=== PATIENT | female | born 1935 | race Caucasian/White ===

== ENCOUNTER 2020-01-29 10:30 | Outpatient (CLI) | payer MEDICARE, SELFPAY ==
--- NOTE | ~2020-01-29 | CT_ITS ---
EXAMINATION: CT abdomen pelvis wo con DATE: 01/29/2020 11:06 INDICATION: Abnormal weight loss. Possible palpable mass. TECHNIQUE: Computed tomography (CT) of the abdomen and pelvis was performed without intravenous contr ast. Automated exposure control and iterative reconstruction technique were employed. Exam dose: 276 .50 mGy-cm total exam DLP. COMPARISON: None. FINDINGS: There is mild discoid atelectasis or scarring at the posterior right lung base. Calcified hepatic and splenic granulomas. No hepatic, splenic, pancreatic or adrenal space occupying mass lesion. Bilateral fat containing foramen of Bochdalek hernias, containing fat on the right, fat and partial l eft kidney on the left. 3 cm left renal mass most consistent with cyst. No right renal mass lesion. No urinary tract calculus or hydroureteronephrosis. Small sliding hiatal hernia. There is a prominent amount of feces in the colon. Numerous diverticula of the colon; no CT evidence of diverticulitis. No bowel obstruction or intraperitoneal free air. Status post hysterectomy. There is diffuse moderate thickening of the urinary bladder. There is calcification of the abdominal aorta and iliac arteries; no abdominal aortic aneurysm. No intraperitoneal or retroperitoneal or pelvic mass lesion or adenopathy or ascites. Degenerative changes of the thoracic and lumbar spine, including severe degenerative disc disease at L4-5 and L5-S1 and degenerative changes of apophyseal joints, with associated grade 1 anterolisthesis at L4-5. IMPRESSION: 3 cm left renal probable cyst Small sliding hiatal hernia Colonic diverticulosis Reviewed, dictated and finalized at Location A. Reviewed, dictated and finalized at location A.
== END 2020-01-29 10:31 | disposition home or self-care (01) ==
PROVIDERS: PCP Family Medicine; Visit Provider Family Medicine
DX: R63.4 Abnormal weight loss (principal); R19.00 Intra-abdominal and pelvic swelling, mass and lump, unspecified site; K44.9 Diaphragmatic hernia without obstruction or gangrene; K57.90 Diverticulosis of intestine, part unspecified, without perforation or abscess without bleeding
CPT/HCPCS: 74176

== ENCOUNTER 2020-05-03 09:18 | Outpatient (CLI) | payer MEDICARE, SELFPAY ==
--- NOTE | ~2020-05-03 | CT_ITS ---
EXAMINATION: CTA chest DATE: 05/03/2020 10:15 INDICATION: Thoracic aortic aneurysm without rupture. TECHNIQUE: Computed tomographic angiography (CTA) of the chest was performed with 100 mL Omnipaque-35 0 intravenous contrast. Automated exposure control and iterative reconstruction technique were employ ed. The dose-length product was 171.73 mGy-cm. Maximum intensity projection 3D-reconstructions of the aorta and other arteries were constructed by the technologist on a separate workstation. COMPARISON: Chest CT 01/06/2019 FINDINGS: There is mild atelectasis bilaterally. No pleural effusion. Calcified left hilar lymph node s are consistent with old granulomatous disease. Cardiomegaly is noted. No pericardial effusion. Ther e is no pulmonary embolus. The aorta measures 4.1 cm at the sinuses of Valsalva, 3.2 cm at the sinotu bular junction, 3.2 cm in the mid ascending aorta, 3.1 cm at the isthmus, 4.1 cm in proximal descendi ng aorta, and 3.1 cm in the mid descending aorta. There is a 3.0 cm cyst in left kidney. Calcificatio ns in the spleen are consistent with old granulomatous disease. There is severe thoracic spondylosis . IMPRESSION: 1. Stable 4.1 cm fusiform aneurysm of proximal descending thoracic aorta. Reviewed, dictated and finalized at location B.
[2020-05-03 09:55] LABS: Estimated Glomerular Filt Rate > 60
== END 2020-05-03 09:19 | disposition home or self-care (01) ==
PROVIDERS: PCP Family Medicine; Visit Provider Family Medicine
DX: I71.2 Thoracic aortic aneurysm, without rupture (principal)
CPT/HCPCS: 36415; 71275; Q9967

== ENCOUNTER 2021-01-10 13:38 | Outpatient (CLI) | payer MEDICARE, SELFPAY ==
--- NOTE | ~2021-01-10 | US_ITS ---
EXAMINATION: US venous doppler [facility] DATE: 01/10/2021 14:22 INDICATION: Left lower limb swelling. Acute embolism. TECHNIQUE: Grayscale ultrasound images without and with compression and Doppler ultrasound images of the left lower extremity veins were obtained. COMPARISON: None. FINDINGS: The visualized portions of left common femoral vein, profunda (deep) femoral vein, femoral vein, popl iteal vein, peroneal veins, posterior tibial veins, gastrocnemius vein and greater saphenous vein out flow are patent. IMPRESSION: 1. No deep venous thrombosis in the left lower limb. Reviewed, dictated and finalized at location A.
== END 2021-01-10 13:39 | disposition home or self-care (01) ==
PROVIDERS: PCP Family Medicine; Visit Provider Physician Assistant
DX: I82.90 Acute embolism and thrombosis of unspecified vein (principal); M79.89 Other specified soft tissue disorders
CPT/HCPCS: 93971

== ENCOUNTER 2021-06-06 07:49 | Outpatient (CLI) | payer MEDICARE, SELFPAY ==
--- NOTE | ~2021-06-06 | CT_ITS ---
EXAMINATION: CTA chest EXAM DATE: 06/06/2021 08:31 INDICATION: 4.1 thoracic aortic aneurysm on last CTA. TECHNIQUE: Spiral CT of the chest following intravenous injection of 100 mL Omnipaque 350. Axial, co rufino and sagittal images of the chest were reviewed. Maximum intensity projection 3-D reconstruction s of the arteries were created by the technologist on dedicated workstation. Coronal maximum intens ity pixel images of chest reviewed. The dose-length product (DLP) for this examination was 168.64 mG y-cm. The exposure was tailored according to patient size (auto mA exposure control), and iterative reconstruction (ASIR) was used as additional dose reduction technique. Comparison is made to prior ex amination from 05/03/2020. FINDINGS: Mildly aneurysmal ascending thoracic aorta measuring up to 4.1 cm, unchanged. No dissectio n. No central pulmonary emboli. Mild emphysema. Lungs are clear. There are no pleural or pericardial effusions. Tracheobronchial tree is patent. There is no mediastinal, hilar or axillary lymphaden opathy. There is no pneumothorax. There is cardiomegaly. There is mild coronary arterial calcifi cation, arterial sclerosis. Upper abdomen is unremarkable. There is mild to moderate thoracic spon dylosis without osteoblastic or osteolytic lesions identified. IMPRESSION: 1. Stable descending thoracic aortic 4.1 cm aneurysm. 2. Mild emphysema. 3. Cardiomegaly. Reviewed, dictated and finalized at location B.
[2021-06-06 08:24] LABS: Estimated Glomerular Filt Rate > 60
== END 2021-06-06 07:50 | disposition home or self-care (01) ==
LOC: ANHIMG 07:49
PROVIDERS: PCP Family Medicine; Visit Provider Family Medicine
DX: I71.2 Thoracic aortic aneurysm, without rupture (principal); J43.9 Emphysema, unspecified; I51.7 Cardiomegaly
CPT/HCPCS: 71275; Q9967

== ENCOUNTER 2022-01-14 09:59 | Emergency (ER) | payer MEDICARE, SELFPAY ==
[2022-01-14] VITALS (10 sets, daily range): BP systolic 109–174; BP diastolic 71–96; PULSE 68–83; RESP 14–25; TEMP 37; O2SAT 95–98
--- NOTE | ~2022-01-14 | CT_ITS ---
EXAMINATION: CTA chest PE protocol DATE: 01/14/2022 14:45 INDICATION: Dizziness and shortness of breath TECHNIQUE: Computed tomography angiography (CTA) of the chest was performed with 100 mL Omnipaque-350 intravenous contrast timed to evaluate the pulmonary arteries. Coronal maximum intensity projection 3D-reconstructions were created by the technologist. The dose-length product (DLP) was 160.06 mGy-cm. Automated exposure control and iterative reconstruction technique were employed. COMPARISON: 06/06/2021 FINDINGS: The pulmonary arteries are well-opacified. No pulmonary embolism is identified. There is mi ld dependent atelectasis. The lungs are free of focal airspace opacities. There is no pleural effusio n or pneumothorax. No pathologically enlarged thoracic lymph nodes are identified. Cardiomegaly is no marianne. There is a 3.2 cm cyst of the left kidney. Severe thoracic spondylosis is noted. IMPRESSION: 1. No pulmonary embolism or acute cardiopulmonary abnormality. Reviewed, dictated and finalized at location F.
--- NOTE | ~2022-01-14 | CT_ITS ---
EXAMINATION: CT brain wo con DATE: 01/14/2022 11:26 INDICATION: Headache and dizziness TECHNIQUE: Computed tomography (CT) of the head was performed without intravenous contrast. Sagittal and coronal reconstructions were performed. The mA was adjusted according to patient size. Iterative reconstruction technique was employed. The dose-length product was 605.33 mGy-cm. COMPARISON: head CT dated 10/08/2015 FINDINGS: No acute intracranial hemorrhage, acute infarction or abnormal extra axial fluid collection. Ventricl es are normal and symmetric. No mass/mass effect. Changes of bilateral intraocular lens replacement. The orbits, paranasal sinuses and mastoid air cells are normal. Intracranial calcified cerebral ather osclerosis is noted. IMPRESSION: 1. No acute intracranial process. Reviewed, dictated and finalized at location A.
--- NOTE | ~2022-01-14 | XR_ITS ---
EXAMINATION: XR chest 2V DATE: 01/14/2022 11:31 INDICATION: Dizziness and shortness of breath. TECHNIQUE: PA and lateral views of the chest were obtained. COMPARISON: Chest radiograph dated chest CT dated 06/06/2021 FINDINGS: Mild streaky bibasilar atelectasis. No pulmonary edema, pleural effusion or pneumothorax. The cardiom ediastinal silhouette is normal. Atherosclerotic and ectatic thoracic aorta. Calcified left hilar lym ph nodes consistent with old granulomatous disease. Mild thoracic spondylosis. IMPRESSION: 1. Mild streaky bibasilar atelectasis. Reviewed, dictated and finalized at location A.
--- NOTE | 2022-01-14 10:56 | ECG_ITS ---
Measurements Intervals [place] Rate: 65 P: 69 SD: 136 QRS: -37 QRSD: 90 T: 96 QT: 366 QTc: 381 Interpretive Statements SINUS RHYTHM MARKED LEFT AXIS DEVIATION [QRS AXIS < -30] POOR R-WAVE PROGRESSION NONSPECIFIC ST & T-WAVE ABNORMALITY NO PREVIOUS ECG AVAILABLE FOR COMPARISON Electronically Signed On 01-15-2022 16:02:40 CDT by Christopher Tang M.D.
--- NOTE | 2022-01-14 10:58 | ED.DIZZY ---
HPI - Dizziness General Chief Complaint: Dizziness <Lia Ba PA-C - Last Filed: 01/14/22 17:25> Stated Complaint: I'm sick <PIETER Moncada Last Filed: 01/14/22 17:25> Time Seen by Provider: 01/14/22 10:09 <Lia Ba PA-C - Last Filed: 01/14/22 17:25> Source: patient <PIETER Moncada Last Filed: 01/14/22 17:25> Mode of arrival: ambulatory <PIETER Moncada Last Filed: 01/14/22 17:25> Limitations: no limitations <PIETER Moncada Last Filed: 01/14/22 17:25> History of Present Illness HPI Narrative: Patient is an 86-year-old female who presents the ED with report of dizziness. Patient reports she woke up yesterday morning with slight dizziness which persisted throughout the day yesterday. She woke up again this morning with dizziness, which prompted her to come to the ED. She describes dizziness as feeling lightheaded and off balance like she is drunk, although she has not been drinking. She denies any room spinning sensation. Patient also reports having a mild headache and occasional tinnitus. Has chronic SOB, but denies any acute worsening. No nausea, vomiting, fever, chills, chest pain, vision changes, otalgia, abdominal pain, urinary symptoms. <PIETER Moncada Last Filed: 01/14/22 17:25> Related Data Allergies/Adverse Reactions: Allergies Allergy/AdvReac Type Severity Reaction Status Date / Time No Known Allergies Allergy Mild Unverified 04/25/10 07:06 <PIETER Moncada Last Filed: 01/14/22 17:25> Review of Systems Review of Systems: CONSTITUTIONAL: Denies fever, chills. EYES: Denies visual changes. ENT: Reports occasional tinnitus. Denies rhinorrhea, congestion, or otalgia. CARDIOVASCULAR: Denies chest pain. RESPIRATORY: Reports chronic shortness of breath. Denies acute worsening of SOB, cough. GASTROINTESTINAL: Denies abdominal pain, nausea, vomiting, or diarrhea. GENITOURINARY: Denies dysuria or hematuria. MUSCULOSKELETAL: Denies back pain. NEUROLOGIC: Reports dizziness/lightheadedness, mild OSUNA. Denies numbness, tingling, or weakness. <Lia Ba PA-C - Last Filed: 01/14/22 17:25> All systems reviewed & are unremarkable except as noted in HPI and below <Lia Ba PA-C - Last Filed: 01/14/22 17:25> [facility] Past Medical History Medical History: Medical History (Updated 01/14/22 @ 16:01 by Lia Ba PA-C) COPD (chronic obstructive pulmonary disease) Depression Hyperlipidemia Hypertension Thoracic aortic aneurysm <Lia Ba PA-C - Last Filed: 01/14/22 17:25> Surgical History Surgical History: Surgical History (Updated 01/14/22 @ 11:02 by Lia Ba PA-C) History of hysterectomy <Lia Ba PA-C - Last Filed: 01/14/22 17:25> Social History Social History: Social History (Updated 01/14/22 @ 11:02 by Lia Ba PA-C) Smoking status: Never smoker <Lia Ba PA-C - Last Filed: 01/14/22 17:25> Exam Narrative: GENERAL: Well appearing, well-nourished, non-toxic, in no acute distress. HEAD: Normocephalic, atraumatic. EYES: PERRL/EOMI, conjunctivae clear bilaterally. No nystagmus. EARS:TMS clear, with good light reflex. No erythema or bulging. Slight cerumen present, R > L, but no impaction. No pain with palpation of tragus or manipulation of pinnas. NECK: Supple. No adenopathy, no masses. RESPIRATORY: Airway patent, respirations nonlabored. Clear to auscultation bilaterally, no rales, rhonchi, wheezing. CARDIOVASCULAR: Regular rate and rhythm without murmurs, rubs, or gallops. Peripheral pulses 2+ and equal bilaterally. ABDOMINAL: Soft, nontender, nondistended, no hepatosplenomegaly. Normoactive BS. MUSCULOSKELETAL: Moves all extremities. Strength/ROM intact without gross deformities or TTP. No edema. SKIN: Warm, dry, normal color. No rashes. NEURO: A&O X3. Speech clear. Follows commands. CN II-XII intact. Sensation grossly intact. Steady gait. No atax
[2022-01-14] MEDS: MECLIZINE HCL 25 MG TABLET PO (11:09)
[2022-01-14 11:12] LABS: Basophils Absolute Auto 0.1 K/mm3 (0.0-0.1); Basophils Percent Auto 1.7 % (0.2-1.2); Eosinophils Absolute Auto 0.1 K/mm3 (0-0.3); Eosinophils Percent Auto 1.7 % (0-4.4); Hematocrit 39.3 % (37.0-47.0); Hemoglobin 12.6 g/dL (12.0-15.0); Immature Granulocyte Absolute 0.01 K/mm3 (0.00-0.031); Immature Granulocyte Percent A 0.2 % (0-0.5); Lymphocytes Percent Auto 21.3 % (18.3-44.2); Mean Corpuscular HGB Conc 32.1 g/dl (32-36); Mean Corpuscular Hemoglobin 30.5 pg (26-34); Mean Corpuscular Volume 95.2 fl (80-100); Mean Platelet Volume 9.2 fl (7.4-10.4); Monocytes Absolute Auto 0.4 K/mm3 (0.1-0.6); Monocytes Percent Auto 9.7 % (2.6-8.5); Neutrophils Absolute Auto 2.8 K/mm3 (1.3-6.7); Neutrophils Percent Auto 65.4 % (45.5-73.1); Platelet Count Result 327 k/mm3 (150-375); Red Blood Count 4.13 M/mm3 (4.2-5.4); White Blood Count 4.2 K/mm3 (4.5-10.0)
[2022-01-14 11:22] LABS: Alanine Aminotransferase 18 U/L (4-35); Albumin Level 4.3 g/dL (3.5-5.1); Alkaline Phosphatase 69 U/L (38-126); Anion Gap 5 mmol/L (8-16); Aspartate Amino Transferase 35 U/L (14-36); Bilirubin,Total 0.3 mg/dL (0.2-1.3); Blood Urea Nitrogen 12 mg/dL (7-17); Calcium 8.7 mg/dL (8.4-10.2); Carbon Dioxide 28 mmol/L (22-30); Chloride 105 mmol/L (98-107); Estimated CRCL calculation 46 ml/min; Estimated Glomerular Filt Rate > 60; Glucose 99 mg/dL (65-110); Potassium 4.1 mmol/L (3.4-5.0); Sodium 138 mmol/L (137-145)
[2022-01-14 11:46] LABS: Troponin I < 0.012 ng/mL (0.000-0.034)
[2022-01-14 12:48] LABS: Add Urine Microscopic? YES; Appearance Urine Cloudy (Clear); Bacteria Urine Trace /hpf; Bilirubin Urine Negative (Negative); Blood Urine 1+ (Negative); Color Urine Yellow (Yellow); Glucose Urine UA Negative (Negative); Ketones Urine Negative (Negative); Leukocyte Esterase Ur 3+ LEU/UL (Negative); Mucus Urine Rare /lpf; Nitrate Urine Negative (Negative); Protein Urine Negative (Negative); Specific Grav Ur 1.011 (1.001-1.035); Squamous Epithelial Cell Urine Moderate /hpf (Few); Transitional Epi Cells Urine Occasional /hpf (None Seen); Urobilinogen Urine Negative mg/dL (<2.0); WBC Urine >75 /hpf
== END 2022-01-14 16:57 | disposition home or self-care (01) ==
PROVIDERS: Physician Assistant; Emergency Provider Emergency Medicine; PCP Family Medicine
DX: R42 Dizziness and giddiness (principal); N30.01 Acute cystitis with hematuria; J44.9 Chronic obstructive pulmonary disease, unspecified; E78.5 Hyperlipidemia, unspecified; I10 Essential (primary) hypertension; R94.31 Abnormal electrocardiogram [ECG] [EKG]
CPT/HCPCS: 36415; 70450; 71046; 71275; 80053; 81001; 84484; 85025; 85380; 87086; 87088; 93005; 99284; A9270; Q9967

== ENCOUNTER 2022-06-22 07:20 | Outpatient (CLI) | payer MEDICARE, SELFPAY ==
--- NOTE | ~2022-06-22 | CT_ITS ---
EXAMINATION: CTA chest DATE: 06/22/2022 07:56 INDICATION: Thoracic aortic aneurysm TECHNIQUE: Computed tomographic angiography (CTA) of the chest was performed without and with 100 mL Omnipque-350 intravenous contrast. Maximum intensity projection 3D-reconstructions of the aorta and o ther arteries were constructed by the technologist on a separate workstation. The dose-length product (DLP) was 152.53 mGy-cm. Automated exposure control and iterative reconstruction technique were empl oyed. COMPARISON: 01/14/2022, 06/06/2021 FINDINGS: The ascending aorta measures 3.3 cm at the level of the main pulmonary artery. The proximal descending aorta measures up to 3.8 cm there is no dissection. There is mild dependent atelectasis. No pleural effusion or pneumothorax. The lungs are free of focal airspace opacities. Cardiomegaly is noted. There are no pathologically enlarged thoracic lymph nodes. There is thoracic spondylosis. Concrete Worker flavio enlargement, bile duct is noted unclear etiology. IMPRESSION: 1. Dilated descending thoracic aorta measuring up to 3.8 cm. No dissection. Reviewed, dictated and finalized at location A.
[2022-06-22 07:48] LABS: Estimated Glomerular Filt Rate > 60
== END 2022-06-22 07:21 | disposition home or self-care (01) ==
PROVIDERS: PCP Family Medicine; Visit Provider Family Medicine
DX: I71.2 Thoracic aortic aneurysm, without rupture (principal)
CPT/HCPCS: 71275; Q9967

== ENCOUNTER 2024-01-19 18:51 | Emergency (ER) | payer MEDICARE, SELFPAY ==
--- NOTE | 2024-01-19 19:02 | ED.WOUNDLAC ---
HPI - Wound/Laceration General Chief Complaint: Wound/Laceration Stated Complaint: Right Elbow Pain Time Seen by Provider: 01/19/24 19:03 Source: patient Mode of arrival: ambulatory Limitations: no limitations History of Present Illness HPI narrative: 88-year-old female presented for complaint of laceration to the right elbow sustained at 1:00 p.m. today. She reports changing Band-Aids twice but it continues to ooze. Denies decreased ROM swelling, pain,numbness tingling or weakness to the RUE. She took Aleve. Related Data Allergies Allergy/AdvReac Type Severity Reaction Status Date / Time No Known Allergies Allergy Mild Verified 01/19/24 18:55 Review of Systems Review of Systems: CONSTITUTIONAL: Denies body aches, fever, chills, or sweats. EYES: Denies visual changes, redness, or discharge. ENT: Denies rhinorrhea, congestion CARDIOVASCULAR: Denies chest pain, palpitations, or edema. RESPIRATORY: Denies cough or dyspnea. GASTROINTESTINAL: Denies abdominal pain, nausea, vomiting, or diarrhea. SKIN: reports laceration right elbow MUSCULOSKELETAL: Denies back pain, joint pain, or myalgia. NEUROLOGIC: Denies headache, numbness, tingling, or weakness. [facility] Past Medical History Medical History Atherosclerotic heart disease of [place] coronary artery without angina pectoris Cerebral atherosclerosis Hyperlipidemia Hypertension Major depressive disorder, recurrent, in partial remission Thoracic aortic aneurysm Unspecified chronic bronchitis Surgical History Surgical History History of arthroscopic knee surgery 07/04/2007 History of hysterectomy 1975 Family History Family History Father Accident at workplace Mother Acute myocardial infarction Heart disease Grandparent COPD (chronic obstructive pulmonary disease) Diabetes mellitus Stomach cancer Social History Social History Smoking status: Never smoker Second hand tobacco smoke exposure: No Alcohol intake: never Substance use: never Substance use type: does not use Do You Feel Safe in your Home?: Yes Lack of Transportation: No Lack of Food: Never True Current Housing: I Have Housing Concerned About Future Housing: No Difficulty Paying Gas/Electric Bills: No Difficulty Paying for Meds: No Currently Unemployed: YES Education: High School Diploma/GED Difficulty w/ Childcare or Family Care: No Living arrangements: alone Occupation/Education: retired Gender identity (if verbalized by the patient): Female Sexual Orientation (if Verbalized by the Patient): Straight or Heterosexual Comments At time of signature, I have reviewed and agree with nursing past medical, surgical, social and family history unless otherwise noted. Please see nursing chart for further information. There is no relevant family history pertinent to the presenting complaint Exam Narrative: GENERAL: Well-appearing HEAD: Normocephalic, atraumatic. EYES: conjunctivae clear, and EOMI. ENT: Mucous membranes moist. Oropharynx without edema, erythema or lesions. NECK: Supple. No lymphadenopathy CHEST: Clear to auscultation. HEART: Regular rate and rhythm. SKIN: Warm, dry. skin avulsion to right forearm just distal to elbow 6 cm x 4 cm avulsion/flap, irregular. Surrounding ecchymosis. MUSC: Full ROM to RUE, elbow nontender, no swelling or deformity. NEURO: Alert and oriented x3. Extrem: Shoulder/upper arm images: 1. area of irregular skin avulsion Course Course Emergency Course: Patient is aware of diagnosis, understands and agrees to treatment plan. Anticipatory guidance given. Patient agrees to follow-up as directed and is aware of reasons to seek care at the emergency department.
[2024-01-19 19:03] VITALS: BP 144/79; PULSE 80; RESP 12; TEMP 37.2; O2SAT 98
[2024-01-19] MEDS: LIDO 1%/EPINEPHRINE 1:100,000 20 ML VIAL INFILTRATE (19:25)
== END 2024-01-19 20:39 | disposition home or self-care (01) ==
PROVIDERS: Emergency Provider Nurse Practitioner Family; PCP Family Medicine
DX: S51.811A Laceration without foreign body of right forearm, initial encounter (principal); X58.XXXA Exposure to other specified factors, initial encounter; I25.10 Atherosclerotic heart disease of native coronary artery without angina pectoris; I67.2 Cerebral atherosclerosis; E78.5 Hyperlipidemia, unspecified; I10 Essential (primary) hypertension
CPT/HCPCS: 12004; 99213; G0463

== ENCOUNTER 2024-12-16 13:35 | Emergency (ER) | payer MEDICARE, SELFPAY ==
[2024-12-16] VITALS (12 sets, daily range): BP systolic 130–144; BP diastolic 67–77; PULSE 66–72; RESP 16–20; TEMP 36.6; O2SAT 95–100
--- NOTE | ~2024-12-16 | CT_ITS ---
CT chest abdomen pelvis w con Ordering provider: Slim Cole History: 89 years Female with . rlq pain . Comparison: None. Technique: CT chest with IV contrast. CT abdomen and pelvis CT abdomen and pelvis with IV and with or al contrast. Radiation reduction technique utilized.The dose-length product was 327.82 mGy-cm. 100 mL Omnipaque 350 was given IV. FINDINGS: CHEST: --VISUALIZED THORACIC INLET: Hypodensity in the right lobe of the thyroid suggestive of a nodule. Ult rasound evaluation advised. --MEDIASTINUM: Aorta/coronary arteries: Mild atheromatous disease. Heart/other: The heart is slightly enlarged. Lymph nodes: No mediastinal or hilar adenopathy. --LUNGS: Dependent atelectatic changes bilaterally. Soft tissue density seen in the right lower lobe posteriorly which measures 1.4 cm is most likely atelectatic nodule is less likely. [address] follo w-up advised. No pulmonary masses. No infiltrates or effusions. No pneumothorax. --MUSCULOSKELETAL: Soft tissues: The superficial soft tissues are normal. Bones: Age appropriate degenerative changes of the spine. No suspicious bony lytic or sclerotic lesio ns. ABDOMEN/PELVIS: --MUSCULOSKELETAL: Bones: Age appropriate degenerative changes of the spine. No suspicious bony lytic or sclerotic lesio ns. Superficial soft tissues: Right inguinal fat containing hernia is seen with minimal fluid. No bowel i s noted. Otherwise, The superficial soft tissues are normal. --UPPER ABDOMINAL ORGANS: Liver: 8 mm hypodensity seen in the right lobe of the liver which is most likely small cysts. Ultraso und confirmation advised. Gallbladder: Distended with no definite stones. CBD measures 7 mm. Spleen: Normal. Benign calcifications. Stomach/duodenum: Normal. Pancreas: Prominent pancreatic duct. Adrenals: Normal. Kidneys: 4.5 cm left kidney cyst is noted. Small cyst in the right kidney midpole is noted. --PELVIC ORGANS: The bladder is underfilled with slightly thickened wall. Evaluation for cystitis adv ised. No bladder stones. --BOWEL AND MESENTERY: Colon: No evidence of diverticulitis. Fecal material is loaded in the colon suggestive of constipatio n. Appendix is not demonstrated. Small Bowel: Normal. No obstruction. Peritoneum/mesentery: No free air or free fluid. No mesenteric lymphadenopathy. --RETROPERITONEUM: Mild atheromatous disease of the abdominal aorta. No retroperitoneal lymphadenop athy. IMPRESSION: CHEST: 1. Nodule in the right lobe of the thyroid. Ultrasound evaluation of advised. 2. Atelectatic changes in the right lung base with possible nodule measuring 1.3 cm although less li callum. 3 months follow-up advised. ABDOMEN/PELVIS: 1. Hypodensity in the liver most likely small cysts. Ultrasound evaluation advised. 2. Large left renal cyst. 3. No evidence of appendicitis, diverticulitis or intestinal obstruction. 4. Constipation. 5. Slightly prominent pancreatic duct. 6. Right inguinal hernia with fat and fluid content. Reviewed, dictated and finalized at location A. IMPRESSION: CHEST: 1. Nodule in the right lobe of the thyroid. Ultrasound evaluation of advised. 2. Atelectatic changes in the right lung base with possible nodule measuring 1 .3 cm although less likely. 3 months follow-up advised. ABDOMEN/PELVIS: 1. Hypodensity in the liver most likely small cysts. Ultrasound evaluation adv ised. 2. Large left renal cyst. 3. No evidence of appendicitis, diverticulitis or intestinal obstruction. 4. Constipation. 5. Slightly prominent pancreatic duct. 6. Right inguinal hernia with fat and fluid content.
--- OUTSIDE RECORDS SUMMARY | 2024-12-16 14:42 | XMS_ITS | Continuity of Care Document ---
Author Organization [facility] Address [address] [place] [address] [address] [facility] [address] [place] [address] Phone Care Team Providers Care Final Assembly Worker Name Role Phone Georgia So Unavailable Unavailable Procedures Procedure Date Office Consultation Advance Directives Directive Yes / No Effective Date File Name No Information Encounters Encounter Description Practice Location Reason(s) For Visit Diagnoses Date Provider Providers Copied on Encounter Office Consultation [facility], [address] [place] [address] [address], [place], [place], [id number], [place] tel:[phone] [facility] No Information [address] [facility] [address] [place] , [address], [place], [address], [place]. tel:[phone] Referring Provider: Golden Stark OD, [address] [place], [address]. tel:[phone] Family History Family Member Type Diagnosis Age At Onset No Information Payers Payer name Insurance type Covered democrat ID Authoriza tion(s) Ad[employer]ra Mdcr Adv CI [id number] Social History Type Description Quantity Date Captured [...]
[2024-12-16 17:46] LABS: Basophils Absolute Auto 0.1 K/mm3 (0.0-0.1); Basophils Percent Auto 0.7 % (0.2-1.2); Eosinophils Percent Auto 0.3 % (0-4.4); Hematocrit 38.6 % (37.0-47.0); Hemoglobin 12.5 g/dL (12.0-15.0); Immature Granulocyte Absolute 0.02 K/mm3 (0.00-0.031); Immature Granulocyte Percent A 0.2 % (0-0.5); Lymphocytes Absolute Auto 0.98 K/mm3 (0.9-3.2); Lymphocytes Percent Auto 10.3 % (18.3-44.2); Mean Corpuscular HGB Conc 32.4 g/dl (32-36); Mean Corpuscular Hemoglobin 28.6 pg (26-34); Mean Corpuscular Volume 88.3 fl (80-100); Mean Platelet Volume 9.4 fl (7.4-10.4); Monocytes Absolute Auto 0.5 K/mm3 (0.1-0.6); Monocytes Percent Auto 5.1 % (2.6-8.5); Neutrophils Percent Auto 83.4 % (45.5-73.1); Platelet Count Result 705 k/mm3 (150-375); Red Blood Count 4.37 M/mm3 (4.2-5.4); Red Cell Distribution Width 15.3 % (11.5-14.5); White Blood Count 9.6 K/mm3 (4.5-10.0)
--- OUTSIDE RECORDS SUMMARY | 2024-12-16 17:49 | XMS_ITS | Continuity of Care Document ---
Author Organization [facility] Address [address] [place] [address] Exec utive [facility] [address] [place] [address] Phone Care Team Providers Care Deicer Repairer Electric Name Role Phone Georgia So Unavailable Unavailable Procedures Procedure Date Office Consultation Advance Directives Directive Yes / No Effective Date File Name No Information Encounters Encounter Description Practice Location Reason(s) For Visit Diagnoses Date Provider Providers Copied on Encounter Office Consultation [facility], [address] [place] [address] [address], [place], [place], [id number], [place] tel:[phone] [facility] No Information [address] [facility] [place] , [address], [place], [address], [place]. tel:[phone] Referring Provider: Golden Stark OD, [address] [place], [address]. tel:[phone] Family History Family Member Type Diagnosis Age At Onset No Information Payers Payer name Insurance type Covered libertarian ID Authoriza tion(s) Ad[employer] Mdcr Adv CI [id number] Social History Type Description Quantity Date Captured [...]
[2024-12-16 17:57] LABS: Add Urine Microscopic? YES; Appearance Urine Clear (Clear); Bacteria Urine None Seen /hpf; Bilirubin Urine Negative (Negative); Blood Urine Negative (Negative); Color Urine Yellow (Yellow); Glucose Urine UA Negative (Negative); Ketones Urine Trace mg/dL (Negative); Leukocyte Esterase Ur 2+ LEU/UL (Negative); Nitrate Urine Negative (Negative); Non Pathogenic Casts 0-2; Protein Urine Negative (Negative); RBC Urine 0-2 /hpf (0-2); Specific Grav Ur 1.016 (1.001-1.035); Squamous Epithelial Cell Urine None Seen /hpf (Few); WBC Urine 21-50 /hpf (0-3)
[2024-12-16 18:13] LABS: Alanine Aminotransferase 15 U/L (6-35); Albumin Level 4.2 g/dL (3.5-5.1); Alkaline Phosphatase 89 U/L (38-126); Anion Gap 7 mmol/L (4-12); Aspartate Amino Transferase 24 U/L (14-36); Bilirubin,Total 0.5 mg/dL (0.2-1.3); Blood Urea Nitrogen 10 mg/dL (7-17); Calcium 8.8 mg/dL (8.4-10.2); Carbon Dioxide 28 mmol/L (22-30); Chloride 98 mmol/L (98-107); Estimated CRCL calculation 44 ml/min; Estimated Glomerular Filt Rate > 60; Glucose 119 mg/dL (65-110); Potassium 3.5 mmol/L (3.4-5.0); Sodium 133 mmol/L (137-145)
--- NOTE | 2024-12-16 19:54 | ED_ITS ---
HPI - Abdominal Pain General Chief Complaint: Abdominal Pain Stated Complaint: Abd cramping, nausea Time Seen by Provider: 12/16/24 17:20 Source: patient Mode of arrival: ambulatory Limitations: no limitations History of Present Illness HPI narrative: 89-year-old with a history of hypertension, hyperlipidemia, constipation him with a complains of right lower abdominal pain started few hours ago. Patient stated that she felt the lump in the right lower abdomen which she pushed on it and then started having severe pain associated with mild nausea. She states by the time she got to the ER the lump in the lower abdomen disappeared. She also mentions her last bowel movement was 5 days ago. MD elicited complaint: abdominal pain Pertinent past history: constipation Onset (ago): hour(s) (3) Location: none Severity: moderate Quality: aching Radiation: none Migration to: no migration Exacerbating factors: nothing Relieving factors: nothing Associated symptoms: denies other symptoms Related Data Allergies Allergy/AdvReac Type Severity Reaction Status Date / Time No Known Allergies Allergy Mild Verified 12/16/24 13:36 Review of Systems 2 Review of Systems: All systems reviewed & are unremarkable except as noted in HPI and below Constitutional: Constitutional: Reports no additional constitutional complaints Eyes: Eyes: Reports no additional eye complaints ENT: Reports system reviewed and no additional complaints, except as documented Cardiovascular: Cardiovascular: Reports no additional cardiovascular complaints Respiratory: Respiratory: Reports no additional respiratory complaints Gastrointestinal: Gastrointestinal: Reports as per HPI Musculoskeletal: Musculoskeletal: Reports no additional musculoskeletal complaints [facility] Past Medical History Medical History Carpal tunnel syndrome, bilateral Venous insufficiency of lower extremity Cerebral atherosclerosis 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 Unspecified chronic bronchitis Major depressive disorder, recurrent, in partial remission Thoracic aortic aneurysm Hyperlipidemia Hypertension Surgical History Surgical History History of arthroscopic knee surgery 07/04/2007 History of hysterectomy 1975 Family History Family History Father Accident at workplace Mother Acute myocardial infarction Heart disease Grandparent COPD (chronic obstructive pulmonary disease) Diabetes mellitus Stomach cancer Social History Social History Smoking status: Never smoker Second hand tobacco smoke exposure: No Alcohol intake: never Substance use: never Substance use type: does not use Do You Feel Safe in your Home?: Yes Lack of Transportation: No Lack of Food: Never True Current Housing: I Have Housing Concerned About Future Housing: No Difficulty Paying Gas/Electric Bills: No Difficulty Paying for Meds: No Currently Unemployed: YES Education: High School Diploma/GED Difficulty w/ Childcare or Family Care: No Living arrangements: alone Occupation/Education: retired Gender identity (if verbalized by the patient): Female Sexual Orientation (if Verbalized by the Patient): Straight or Heterosexual Exam 2 Narrative: GENERAL: Well-appearing, well-nourished, and in no acute distress. HEAD: Normocephalic, atraumatic. EYES: PERRLA and EOMI. ENT: Nares clear, no rhinorrhea or epistaxis. Mucous membranes moist. NECK: Supple. CHEST: Clear to auscultation. No respiratory distress. HEART: Regular rate and rhythm. No murmur heard. Normal peripheral pulses. ABDOMEN: Soft, nontender, nondistended, normal active bowel sounds. No obvious mass or hernia noted EXTREMITIES: Normal range of motion. No edema. SKIN: Warm, dry, no rash. NEURO: No focal deficits. Alert and oriented x3. PSYCH: Normal mood and affect. Course Course Emergency Course: Patient comfortably resting, informed her about her lab work, CT findings. Recommended her to take laxative as prescribed. Vital Signs Vital signs: Vital Signs Temperature 36.6 C 12/16/24 13:51 Pulse Rate 72 12/16/24 13:51 Respiratory Rate 16 12/16/24 13:51 Blood Pressure 144/77 H 12/16/24 13:51 Pulse Oximetry 100 12/16/24 13:51 Temperature 36.6 C 12/16/24 13:51 Pulse Rate 72 12/16/24 19:15 Respiratory Rate 16 12/16/24 19:15 Blood Pressure 130/69 12/16/24 19:15 Pulse Oximetry 99 12/16/24 19:15 MDM - Abdominal Pain Medical Records Attestation: I reviewed the patient's medical records. Lab Data Attestation: I reviewed the patient's lab results. 12/16/24 17:37 12/16/24 17:54 Labs: Lab Results 12/16/24 12/16/24 Range/Units 17:37 17:54 WBC 9.6 (4.5-10.0) K/mm3 RBC 4.37 (4.2-5.4) M/mm3 Hgb 12.5 (12.0-15.0) g/dL Hct 38.6 (37.0-47.0) % MCV 88.3 (80-100) fl MCH 28.6 (26-34) pg MCHC 32.4 (32-36) g/dl RDW 15.3 H (11.5-14.5) % Plt Count 705 H D (150-375) k/mm3 MPV 9.4 (7.4-10.4) fl Immature Gran % (Auto) 0.2 (0-0.5) % Neut % (Auto) 83.4 H (45.5-73.1) % Lymph % (Auto) 10.3 L (18.3-44.2) % [place] % (Auto) 5.1 (2.6-8.5) % Eos % (Auto) 0.3 (0-4.4) % Baso % (Auto) 0.7 (0.2-1.2) % Lymph # (Auto) 0.98 (0.9-3.2) K/mm3 [place] # (Auto) 0.5 (0.1-0.6) K/mm3 Eos # (Auto) 0.0 (0-0.3) K/mm3 Baso # (Auto) 0.1 (0.0-0.1) K/mm3 Abs Immat Gran (auto) 0.02 (0.00-0.031) K/mm3 Absolute Neuts (auto) 8.0 H (1.3-6.7) K/mm3 Absolute Nucleated RBC 0.000 (0.0-0.012) K/mm3 Nucleated RBC % 0.0 (0.0-0.2) % Sodium 133 L (137-145) mmol/L Potassium 3.5 (3.4-5.0) mmol/L Chloride 98 (98-107) mmol/L Carbon Dioxide 28 (22-30) mmol/L Anion Gap 7 (4-12) mmol/L BUN 10 (7-17) mg/dL Creatinine 0.53 L (0.7-1.0) mg/dL Estim Creat Clear Calc 44 ml/min Estimated GFR > 60 (59 - ) Glucose 119 H (65-110) mg/dL Calcium 8.8 (8.4-10.2) mg/dL Total Bilirubin 0.5 (0.2-1.3) mg/dL AST 24 (14-36) U/L ALT 15 (6-35) U/L Alkaline Phosphatase 89 (38-126) U/L Total Protein 7.0 (6.3-8.2) g/dL Albumin 4.2 (3.5-5.1) g/dL Urine Color Yellow (Yellow) Urine Appearance Clear (Clear) Urine pH 7.0 (5.0-9.0) Ur Specific [place] 1.016 (1.001-1.035) Urine Protein Negative (Negative) mg/dL Urine Glucose (UA) Negative (Negative) mg/dL Urine Ketones Trace H (Negative) mg/dL Ur Blood (Man) Negative (Negative) Urine Nitrate Negative (Negative) Urine Bilirubin Negative (Negative) Urine Urobilinogen 1.0 (<2.0) mg/dL Leukocyte Esterase Rfl 2+ H (Negative) ZULEIMA/UL Urine RBC 0-2 (0-2) /hpf Urine WBC 21-50 H (0-3) /hpf Ur Squamous Epith Cells None seen (Few) /hpf Urine Bacteria None seen /hpf Urine Casts 0-2 Imaging Data Radiologist's impression: ITS Impressions Chest/Abdomen/Pelvis CT 12/16/24 19:10 IMPRESSION: CHEST: 1. Nodule in the right lobe of the thyroid. Ultrasound evaluation of advised. 2. Atelectatic changes in the right lung base with possible nodule measuring 1.3 cm although less likely. 3 months follow-up advised. ABDOMEN/PELVIS: 1. Hypodensity in the liver most likely small cysts. Ultrasound evaluation advised. 2. Large left renal cyst. 3. No evidence of appendicitis, diverticulitis or intestinal obstruction. 4. Constipation. 5. Slightly prominent pancreatic duct. 6. Right inguinal hernia with fat and fluid content. Discharge Plan Discharge Clinical Impression: Abdominal pain Qualifiers: Abdominal location: right lower quadrant Qualified Code(s): R10.31 - Right lower quadrant pain Constipation Qualifiers: Constipation type: unspecified constipation type Qualified Code(s): K59.00 - Constipation, unspecified Patient Disposition: Home, Self-Care Condition: Stable Instructions: Constipation (DC), Abdominal Pain (ED) Additional Instructions: Continue home medication take MiraLax as prescribed. Patient Language: Moldovan Prescriptions: New polyethylene glycol 3350 [Miralax] 17 gram/dose powder 17 g PO BID Qty: 238 0RF No Action fluoxetine 20 mg capsule 20 mg PO DAILY Qty: 90 1RF cholecalciferol (vitamin D3) 25 mcg (1,000 unit) capsule 25 mcg PO DAILY Qty: 65 0RF cyanocobalamin (vitamin B-12) 1,000 mcg capsule 2,000 mcg PO DAILY Qty: 65 0RF atorvastatin 20 mg tablet 20 mg PO DAILY Qty: 90 1RF hydrochlorothiazide 25 mg tablet 25 mg PO DAILY Qty: 90 1RF Follow-up/Referrals: Dimitri Charles MD [Primary Care Provider] - Time of Disposition: 20:01
== END 2024-12-16 20:29 | disposition home or self-care (01) ==
PROVIDERS: Emergency Provider Family Medicine; PCP Family Medicine
DX: R10.31 Right lower quadrant pain (principal); K59.00 Constipation, unspecified; I10 Essential (primary) hypertension; I25.10 Atherosclerotic heart disease of native coronary artery without angina pectoris; I67.2 Cerebral atherosclerosis; I87.2 Venous insufficiency (chronic) (peripheral); J42 Unspecified chronic bronchitis; E78.5 Hyperlipidemia, unspecified; F33.41 Major depressive disorder, recurrent, in partial remission; Z90.710 Acquired absence of both cervix and uterus; Z79.899 Other long term (current) drug therapy; N28.1 Cyst of kidney, acquired; K40.90 Unilateral inguinal hernia, without obstruction or gangrene, not specified as recurrent; E04.1 Nontoxic single thyroid nodule; R93.2 Abnormal findings on diagnostic imaging of liver and biliary tract; R91.8 Other nonspecific abnormal finding of lung field
CPT/HCPCS: 36415; 71260; 74177; 80053; 81001; 85025; 87086; 99284; Q9967

== ENCOUNTER 2025-01-13 10:00 | Outpatient (CLI) | payer MEDICARE, SELFPAY ==
--- NOTE | 2025-01-13 11:00 | NEURO_ITS ---
Impression: # Complains of numbness of hands. Non-diabetic. ? # Bilateral Carpal Tunnel Syndrome. ? # Right ulnar neuropathy around the elbow. ? # Needle/EMG exam mildly abnormal. Nerve Conduction Studies Anti Sensory Summary Table ?Stim Site NR Peak (ms) P-T Amp (?V) Site1 Site2 Delta-P (ms) Dist (cm) Luis (m/s) Left Median Anti Sensory (2-3nd Digit) Wrist ? 4.8 31.8 Wrist 2-3nd Digit 4.8 14.0 29 Wrist ? 4.8 33.7 Wrist 2-3nd Digit 4.8 14.0 29 Right Median Anti Sensory (2-3nd Digit) Wrist ? 5.3 10.9 Wrist 2-3nd Digit 5.3 14.0 26 Wrist ? 6.1 19.0 Wrist 2-3nd Digit 5.3 14.0 26 Left Radial Anti Sensory (Base 1st Digit) Wrist ? 2.0 14.1 Wrist Base 1st Digit 2.0 0.0 Right Radial Anti Sensory (Base 1st Digit) Wrist ? 2.4 13.4 Wrist Base 1st Digit 2.4 0.0 Left Ulnar Anti Sensory (5th Digit) Wrist ? 3.4 36.1 Wrist 5th Digit 3.4 14.0 41 Right Ulnar Anti Sensory (5th Digit) Wrist ? 2.8 32.4 Wrist 5th Digit 2.8 14.0 50 Motor Summary Table ?Stim Site NR Onset (ms) O-P Amp (mV) Site1 Site2 Delta-0 (ms) Dist (cm) Luis (m/s) Left Median Motor (Abd Poll Brev) Wrist ? 4.5 0.7 Elbow Wrist 4.1 26.0 63 Elbow ? 8.6 2.2 Right Median Motor (Abd Poll Brev) Wrist ? 3.7 4.6 Elbow Wrist 4.1 24.0 59 Elbow ? 7.8 5.1 Left Ulnar Motor (Abd Dig Minimi) Wrist ? 2.4 7.2 A Elbow Wrist 4.2 24.0 57 A Elbow ? 6.6 6.3 B Elbow Wrist 3.5 21.0 60 B Elbow ? 5.9 6.3 Right Ulnar Motor (Abd Dig Minimi) Wrist ? 2.5 6.3 A Elbow Wrist 5.2 26.0 50 A Elbow ? 7.7 6.1 B Elbow Wrist 3.6 17.0 47 B Elbow ? 6.1 5.4 F Wave Studies ?NR F-Lat (ms) L-R F-Lat (ms) Left Median (Mrkrs) (Abd Poll Brev) ? 29.68 0.56 Right Median (Mrkrs) (Abd Poll Brev) ? 29.12 0.56 Left Ulnar (Mrkrs) (Abd Dig Min) ? 26.95 0.47 Right Ulnar (Mrkrs) (Abd Dig Min) ? 26.48 0.47 EMG ?Side Muscle Nerve Root Ins Act Fibs Amp Dur Recrt Comment Right 1stDorInt Ulnar C8-T1 Nml Nml Nml Nml Nml Right Ext Indicis Radial (Post Int) C7-8 Nml Nml Nml Nml Nml Right Ext Digitorum Radial (Post Int) C7-8 Nml Nml Nml Nml Nml Right BrachioRad Radial C5-6 Nml Nml Nml Nml Nml Right PronatorTeres Median C6-7 Nml Nml Nml Nml Nml Right Abd Poll Brev Median C8-T1 Nml Nml Nml >12ms +1 Right ABD Dig Min Ulnar C8-T1 Nml Nml Nml Nml Nml Right FlexPolLong Median (Ant Int) C7-8 Nml Nml Nml Nml Nml Right Abd Poll Long Radial (Post Int) C7-8 Nml Nml Nml Nml +1 Left 1stDorInt Ulnar C8-T1 Nml Nml Nml Nml Nml Left Ext Indicis Radial (Post Int) C7-8 Nml Nml Nml Nml Nml Left Ext Digitorum Radial (Post Int) C7-8 Nml Nml Nml Nml Nml Left BrachioRad Radial C5-6 Nml Nml Nml Nml Nml Left PronatorTeres Median C6-7 Nml Nml Nml Nml Nml Left Abd Poll Brev Median C8-T1 Nml Nml Nml >12ms +1 Left ABD Dig Min Ulnar C8-T1 Nml Nml Nml Nml Nml Left FlexPolLong Median (Ant Int) C7-8 Nml Nml Nml Nml Nml Left Abd Poll Long Radial (Post Int) C7-8 Nml Nml Nml Nml Nml MTDD
--- OUTSIDE RECORDS SUMMARY | 2025-01-13 11:28 | XMS_ITS | Continuity of Care Document ---
Author Organization [facility] Address [address] [place] [address] Exec utive [facility] [address] [place] [address] Phone Care Team Providers Care Seed Sales Manager Name Role Phone Georgia So Unavailable Unavailable Procedures Procedure Date Office Consultation Advance Directives Directive Yes / No Effective Date File Name No Information Encounters Encounter Description Practice Location Reason(s) For Visit Diagnoses Date Provider Providers Copied on Encounter Office Consultation [facility], [address] [place] [address] [address], [place], [place], [id number], [place] tel:[phone] [facility] No Information [address] [facility] [place] , [address], [place], [address], [place]. tel:[phone] Referring Provider: Golden Stark OD, [address] [place], [address]. tel:[phone] Family History Family Member Type Diagnosis Age At Onset No Information Payers Payer name Insurance type Covered constitution party ID Authoriza tion(s) [employer] Mdcr Adv CI [id number] Social History Type Description Quantity Date Captured [...]
== END 2025-01-13 10:01 | disposition home or self-care (01) ==
PROVIDERS: PCP Family Medicine; Visit Provider Plastic Surgery
DX: G56.03 Carpal tunnel syndrome, bilateral upper limbs (principal); G56.21 Lesion of ulnar nerve, right upper limb
CPT/HCPCS: 95886; 95911

== ENCOUNTER 2025-01-26 10:03 | Outpatient (CLI) | payer MEDICARE, SELFPAY ==
--- NOTE | ~2025-01-26 | US_ITS ---
EXAMINATION: US thyroid DATE: 01/26/2025 10:48 INDICATION: Nontoxic multinodular goiter TECHNIQUE: Multiple ultrasound images of the thyroid were obtained. COMPARISON: None. FINDINGS: The right thyroid lobe measures 4.9 x 1.6 x 1.5 cm. Within the right lobe of the thyroid gland is a 11.3 x 8.5 x 8.2 mm nodule: Composition - spongiform Echogenicity -hyperechoic or isoechoic (1) Shape - wider than tall Margin -ill-defined Echogenic foci - none. = TR 1, benign The left thyroid lobe measures 4.4 x 1.4 x 1.3 cm. Within the left lobe of the thyroid gland is a 6 x 5 x 4 mm nodule: Composition -cystic or almost completely cystic Echogenicity -anechoic Shape - wider than tall Margin -smooth Echogenic foci - none. = TR 1, benign The isthmus measures 0.3cm in anterior to posterior dimension. There is normal echotexture and echogenicity throughout the remainder of the thyroid gland. No additi onal discrete nodules identified. Normal vascular flow is present. IMPRESSION: TR1 nodule in the right lobe of the thyroid gland measuring 11.3 mm in greatest dimension. This nodule is not sonographically suspicious and no FNA is recommended Additional TR 1 nodule within the left lobe of the thyroid gland measuring 6 mm in greatest dimension . This nodule is not sonographically suspicious and no FNA is recommended. While follow-up for both of these nodules is not recommended, it may be performed. Reviewed, dictated and finalized at location A. IMPRESSION: TR1 nodule in the right lobe of the thyroid gland measuring 11.3 mm in greatest dimension. This nodule is not sonographically suspicious and no FNA is recommended Additional TR 1 nodule within the left lobe of the thyroid gland measuring 6 mm in greatest dimension. This nodule is not sonographically suspicious and no FN A is recommended. While follow-up for both of these nodules is not recommended, it may be perform ed.
--- OUTSIDE RECORDS SUMMARY | 2025-01-26 10:58 | XMS_ITS | Continuity of Care Document ---
Author Organization formerly [facility] Address [address] [place] [address] Exec utive [facility] [address] [place] [address] Phone Care Team Providers Care Coal Washer Tender Name Role Phone Georgia So Unavailable Unavailable Procedures Procedure Date Office Consultation Advance Directives Directive Yes / No Effective Date File Name No Information Encounters Encounter Description Practice Location Reason(s) For Visit Diagnoses Date Provider Providers Copied on Encounter Office Consultation [facility], [address] [place] [address] [address], [place], [place], [id number], [place] tel:[phone] [facility] No Information [address] [facility] [place] , [address], [place], [address], [place]. tel:[phone] Referring Provider: Golden Stark OD, [address] [place], [address]. tel:[phone] Family History Family Member Type Diagnosis Age At Onset No Information Payers Payer name Insurance type Covered democrat ID Authoriza tion(s) [employer] Mdcr Adv CI [id number] Social History Type Description Quantity Date Captured [...]
== END 2025-01-26 10:04 | disposition home or self-care (01) ==
LOC: ANHIMG 10:07
PROVIDERS: PCP Family Medicine; Visit Provider Family Medicine
DX: E04.1 Nontoxic single thyroid nodule (principal)
CPT/HCPCS: 76536

== ENCOUNTER 2025-05-03 07:55 | Outpatient (CLI) | payer MEDICARE, SELFPAY ==
--- NOTE | ~2025-05-03 | NM_ITS ---
EXAMINATION: NM ewa stress w perfusion DATE: 05/03/2025 10:44 INDICATION: Encounter for preprocedural cardiovascular exam TECHNIQUE: Rest images were obtained following intravenous administration of 11.22 mCi Tc99m tetrofos min (Myoview). The patient was infused intravenously with Lexiscan (Regadenoson). Then, 34.5 mCi Tc99 m tetrofosmin (Myoview) was administered intravenously, and stress images were obtained, initially in the supine position with repeat post stress imaging obtained in the prone position. Data was reconst ructed into short axis and horizontal and vertical long axis SPECT images. Gated SPECT images were al so obtained. COMPARISON: None. FINDINGS: Mild likely artifactual decreased activity along portions of the anterior and anterolateral wall on imaging obtained in the prone position with normalizes on the post stress images obtained in the prone position. No definitive perfusion abnormality on the prone post stress imaging to suggest ischemia or infarction. There is normal left ventricular chamber size, wall motion and ejection fract ion. Left ventricular ejection fraction measures 68%. IMPRESSION: 1. Normal myocardial perfusion at rest and during stress. 2. Left ventricular ejection fraction measuring 68%. Reviewed, dictated and finalized at location A.
--- OUTSIDE RECORDS SUMMARY | 2025-05-03 08:00 | XMS_ITS | Continuity of Care Document ---
Author Organization [facility] Address [address] [place] [address] Exec utive [facility] [address] [place] [address] Phone Care Team Providers Care Medical Reception Specialist Name Role Phone Georgia So Unavailable Unavailable Procedures Procedure Date Office Consultation Advance Directives Directive Yes / No Effective Date File Name No Information Encounters Encounter Description Practice Location Reason(s) For Visit Diagnoses Date Provider Providers Copied on Encounter Office Consultation [facility], [address] [place] [address] [address], [place], [place], [id number], [place] tel:[phone] [facility] No Information [address] [facility] [place] , [address], [place], [address], [place]. tel:[phone] Referring Provider: Golden Stark OD, [address] [place], [address]. tel:[phone] Family History Family Member Type Diagnosis Age At Onset No Information Payers Payer name Insurance type Covered alliance party ID Authoriza tion(s) [employer] Mdcr Adv CI [id number] Social History Type Description Quantity Date Captured [...]
--- NOTE | 2025-05-03 08:37 | EST_ITS ---
Patient Info Name: Talisha Garcia Age: 89 years : 1935 Gender: Female Ht: 60 in Wt: 120 lbs BSA: 1.53 m2 HR: 57 bpm BP: 144 / 76 mmHg Exam Date: 05/03/2025 8:37 AM Patient Status: O Admit Date: 05/03/2025 Exam Type: CA stress ewa w NM A regadenoson stress test was performed. Staff Referring Physician: Flavio Rosales DO Attending Provider: Flavio Rosales DO Exercise Technologist: Helen Ling Exercise Physician: Flavio Rosales DO Summary 1. 1. Negative lexiscan stress test for ischemic ST changes by ECG criteria. 2. 2. Baseline hypertension. 3. 3. Nuclear scan to follow and will be reported separately. Please correlate with it. 4. 4. Patient informed of the above results. Protocol: Lexiscan Stress ECG Details Stage: REST Duration (min): 0 min : 49 sec HR (bpm): 58 SBP (mmHg): 144 DBP (mmHg): 76 Stage: REST Duration (min): 8 min : 57 sec HR (bpm): 58 SBP (mmHg): 144 DBP (mmHg): 76 Stage: STAGE 1 Duration (min): 0 min : 59 sec HR (bpm): 70 SBP (mmHg): 144 DBP (mmHg): 84 Stage: RECOVERY Duration (min): 1 min : 0 sec HR (bpm): 84 SBP (mmHg): 144 DBP (mmHg): 84 Stage: RECOVERY Duration (min): 2 min : 0 sec HR (bpm): 74 SBP (mmHg): 144 DBP (mmHg): 84 Stage: RECOVERY Duration (min): 3 min : 0 sec HR (bpm): 74 SBP (mmHg): 134 DBP (mmHg): 66 Stage: RECOVERY Duration (min): 4 min : 0 sec HR (bpm): 66 SBP (mmHg): 134 DBP (mmHg): 66 Stage: RECOVERY Duration (min): 4 min : 2 sec HR (bpm): 68 SBP (mmHg): 134 DBP (mmHg): 66 Rest HR: 58 bpm Peak HR: 85 bpm Rest Sys BP: 144 mmHg Peak Sys BP: 144 mmHg Max Pred HR: 132 bpm % Max Pred HR: 64 % Target HR: 112 bpm Max RPP: 12,240 bpm*mmHg Termination Reason: Completed protocol Cardiac Symptoms: None Total Time: 1 min : 0 sec Rest Velasco BP: 76 mmHg Peak Velasco BP: 84 mmHg Total Dose: 0.4 mg Resting ECG Sinus bradycardia with borderline ST abnormality in ant/inf leads. Stress ECG No ST changes. Arrhythmias None. Report Signatures
== END 2025-05-03 07:56 | disposition home or self-care (01) ==
PROVIDERS: PCP Family Medicine; Visit Provider Internal Medicine Cardiovascular Disease
DX: Z01.810 Encounter for preprocedural cardiovascular examination (principal)
CPT/HCPCS: 78452; 93017; A9502; J2785

== ENCOUNTER 2025-05-27 14:24 | Outpatient (CLI) | payer MEDICARE, SELFPAY ==
[2025-05-27 15:02] LABS: Anion Gap 7 mmol/L (4-12); Blood Urea Nitrogen 10 mg/dL (7-17); Calcium 9.2 mg/dL (8.4-10.2); Carbon Dioxide 28 mmol/L (22-30); Chloride 98 mmol/L (98-107); Estimated Glomerular Filt Rate > 60; Glucose 97 mg/dL (65-110); Potassium 4.1 mmol/L (3.4-5.0); Sodium 133 mmol/L (137-145)
== END 2025-05-27 14:25 | disposition home or self-care (01) ==
LOC: ANHSURGERY 14:25
PROVIDERS: Anesthesiology; PCP Family Medicine; Visit Provider Plastic Surgery
DX: Z51.81 Encounter for therapeutic drug level monitoring (principal); Z79.899 Other long term (current) drug therapy
CPT/HCPCS: 36415; 80048

== ENCOUNTER 2025-06-02 02:27 | Day surgery (SDC) | payer MEDICARE, SELFPAY ==
--- OUTSIDE RECORDS SUMMARY | 2009-02-01 08:45 | XMS_ITS | Continuity of Care Document ---
Author Organization [facility] Address [address] [place] [address] Exec utive [facility] [address] [place] [address] Phone Care Team Providers Care Director Vaccine Name Role Phone Georgia So Unavailable Unavailable Procedures Procedure Date Office Consultation Advance Directives Directive Yes / No Effective Date File Name No Information Encounters Encounter Description Practice Location Reason(s) For Visit Diagnoses Date Provider Providers Copied on Encounter Office Consultation [facility], [address] [place] [address] [address], [place], [place], [id number], [place] tel:[phone] [facility] No Information [address] , [address], [place], [address], [place]. tel:[phone] Referring Provider: Golden Stark OD, [address] [place], [address]. tel:[phone] Family History Family Member Type Diagnosis Age At Onset No Information Payers Payer name Insurance type Covered libertarian ID Authoriza tion(s) [employer] Mdcr Adv CI [id number] Social History Type Description Quantity Date Captured Comments Sex Female Smoking Status No Information Chief Complaint And Reason For Visit No Information Reason For Referral Reason For Referral No Information History Of Present Illness Encounter Date Complaint History Of Prese nt Illness No Information Functional Status Date Functional Assessmen t No Information Instructions Date Instruction Additional Infor mation No Information Assessments Type Assessment Date No Information Patient Care Teams Name Effective Dates (start - stop) Status Members No Information
[2025-05-25 11:25] VITALS: BMI 23.6
--- NOTE | 2025-05-25 11:54 | PC.NURSE ---
Report to the Outpatient Waiting Room, entrance under the green pavilion located off [facility], at time __8:45AM___ on date ___06/02/25__. Planned Procedure Time: __10:45AM____.? Time changes happen often and if your time is changed the preop area will call you the afternoon before. - You and your visitor will be asked to self-screen and do not enter if you have any COVID symptoms. Please call surgeon if you need to reschedule. - A mask is optional within the hospital at this time. Patients may have clear liquids (water, carbonated beverages, clear teas, apple juice) until 8 hours prior to surgery (2:45AM) with a maximum of 20 ounces. - No food from midnight until time of surgery and no smoking, or chewing tobacco (or any form of nicotine). No chewing gum, candy or mints. Take only the following medications with a SIP of water on the morning of surgery: ____FLUOXETINE(PROZAC) AND BREO ELLIPTA INHALER DO NOT STOP ANY OF YOUR OTHER PRESCRIPTION MEDICATIONS PRIOR TO SURGERY EXCEPT THE FOLLOWING Hold all vitamins and supplements for 3 days per anesthesiologist. LAST DOSE 05/29/25. Please no make-up, nail georgian, hairspray, perfume, deodorant, or body powder the day of surgery.? No jewelry (including any body piercings) or valuables the day of surgery, leave them at home.? Please take a shower or bath the night before, or the morning of, surgery with an antibacterial soap.? Wear comfortable, loose fitting clothing.? - Jewelry must be removed prior to entering the operating room.? Rings and piercings that are not removed may be cut off. - The hospital will not accept responsibility for valuables.? - Please leave all valuables, including medications, at home the day of surgery. If you are going home after surgery, a licensed milk driver must drive you home.? - NO public transportation without another adult if you receive anesthesia. - We recommend that an adult stay with you for 24 hours following discharge. - We also recommend that you do not drive, make important decision, drink alcoholic beverages, or take any drugs that were not prescribed by your health care provider for at least 24 hours after your discharge time. Follow any additional instructions given to you from your surgeon. Telephone instructions given to ____PATIENT and asked if any additional questions and then verbalized understanding. Patient advised to call surgeon office or pre surgery nurse liaison [phone] if any additional questions.
--- NOTE | 2025-06-02 06:53 | P.OP_ITS ---
Procedure Note - Detailed Date of Procedure 06/02/25 Pre-op Diagnosis right carpal and cubital tunnel syndrome Post-op Diagnosis Same Procedure Performed right ectr and CuTR Surgeon Sandie Hawkins MD Anesthesia MAC Description of Procedure INFORMED CONSENT: The patient was seen and examined and marked in the pre-op area.? The patient signed the consent form. PROCEDURE IN DETAIL:The patient taken back to OR on the stretcher in supine position. Time out performed with anesthesia, surgeon and staff agreeing on patient's name site and surgery to be performed SCDs were placed on the lower extremities and inflated. A tourniquet was placed on {right} upper extremity and antibiotics given IV After anesthesia administered sedation I injected {10}cc 1%lido with epi and 0.5% marcaine plain at the operative sites The?{right upper extremity}?was prepped and draped in sterile fashion the??{right upper extremity} was? exsanguinated with Esmarch bandage and tourniquet inflated to 250mmHg I made a transverse incision in the {right} volar distal wrist crease through skin and dermis with 15 blade scalpel.? Littler scissors spread down to antebrachial fascia. A small incision was made in antebrachial fascia allowing access to Carpal tunnel. I proceeded with sequential dilation staying in line with the ring finger and hugging the hook of the hamate.? I then used the synovial elevator to free any adhesions from the underside of the transverse carpal ligament. Next I was able to insert the Microaire endoscopic carpal tunnel device with direct visualization of the transverse fibers on the monitor and proceeded with complete segmental retrograde release of the ligament in its entirety.? I irrigated with normal saline and closed with 4-0 monocryl for dermis and subcuticular closure. I next proceeded with making a longitudinal incision between two heads for flexor carpi ulnaris at end of {right} cubital tunnel with 15 blade scalpel.? Littler scissors were used to spread down to FCU fascia.? An incision was made in FCU fascia and ulnar nerve identified exiting cubital tunnel.? I proceeded with complete retrograde release of the cubital tunnel including 7cm proximal for the intermuscular septum.? The nerve appeared healthy with visible vaso nervorum.? There was no subluxation on full elbow range of motion. ? I irrigated with normal saline and closure with 4-0 monocryl for dermis and subcuticular. The incisions were covered with Dermabond then 4x4s, trey, and a posterior elb ow and volar wrist splint for patient safety, security and comfort and secured with ary bandages after the tourniquet was let down noting the hand was warm and well perfused.? Patient awaken from anesthesia and transferred to recovery in stable condition Complications - none EBL- 1cc Disposition - home in stable condition [facility] Billing Surgery - Charge Forward: Surgery Billing ([id number])
--- NOTE | 2025-06-02 06:53 | PM.HPGS ---
History of Present Illness History of Present Illness Chief complaint: right carpal and cubital tunnel syndrome Narrative: Patient seen and examined in pre-operative holding area. No interval change in medical history or symptoms. Patient recalls previous discussion of benefits and alternatives to procedure. Continues to desire to proceed with right endoscopic possible open carpal tunnel release and right cubital tunnel release. Reviewed procedure, post-op expectations and risks including but not limited to bleeding, infection, injury to tendon/nerve/vessel, decreased hand function, stiffness, RSD, no change or worsening of symptoms. I discussed the possible use of assistants and their participation in the case. Patient stated understanding and signed the consent form wishing to proceed. Review of Systems Review of Systems: All systems reviewed & are unremarkable except as noted in HPI and below PMFSH Past Medical History Medical History Carpal tunnel syndrome, bilateral Venous insufficiency of lower extremity Cerebral atherosclerosis Atherosclerotic heart disease of [place] coronary artery without angina pectoris Unspecified chronic bronchitis Major depressive disorder, recurrent, in partial remission Thoracic aortic aneurysm Hyperlipidemia Hypertension Surgical History Surgical History History of arthroscopic knee surgery 07/04/2007 History of hysterectomy 1975 Family History Family History Father Accident at workplace Mother Acute myocardial infarction Heart disease Grandparent COPD (chronic obstructive pulmonary disease) Diabetes mellitus Stomach cancer Social History Social History (Updated 05/26/25 @ 10:20 by Cher Tom) Social History: Caffeine-coffee Smoking status: Never smoker Second hand tobacco smoke exposure: No Alcohol intake: never Substance use: never Substance use type: does not use Do You Feel Safe in your Home?: Yes Lack of Transportation: No Lack of Food: Never True Current Housing: I Have Housing Concerned About Future Housing: No Difficulty Paying Gas/Electric Bills: No Difficulty Paying for Meds: No Currently Unemployed: YES Education: High School Diploma/GED Difficulty w/ Childcare or Family Care: No Living arrangements: alone Occupation/Education: retired Gender identity (if verbalized by the patient): Female Sexual Orientation (if Verbalized by the Patient): Straight or Heterosexual Spiritual care concerns: No Meds Home Medications and Allergies Home Medications ?Medication ?Instructions ?Recorded ?Confirmed ?Type cyanocobalamin (vitamin B-12) 2,000 mcg (2 x 1,000 mcg) PO DAILY 11/02/24 05/25/25 Rx 1,000 mcg capsule #65 caps atorvastatin 20 mg tablet 20 mg PO DAILY #90 tabs 11/16/24 05/25/25 Rx hydrochlorothiazide 25 mg tablet 25 mg PO DAILY #90 tabs 11/16/24 05/25/25 Rx fluticasone furoate 50 1 inh inhalation QAM 01/12/25 05/25/25 History mcg-vilanterol 25 mcg/dose inhalation powder (Breo Ellipta) fluoxetine 20 mg capsule 20 mg PO DAILY #90 caps 03/19/25 05/25/25 Rx cholecalciferol (vitamin D3) 50 50 mcg PO ONCE 05/25/25 05/25/25 History mcg (2,000 unit) capsule miconazole nitrate 2 % topical 1 applic topical DAILY 05/25/25 05/25/25 History cream polyethylene glycol 3350 17 17 g PO BID PRN constipation 05/25/25 05/25/25 History gram/dose oral powder (Miralax) triamcinolone acetonide 0.1 % 1 applic topical BID PRN rash 05/25/25 05/25/25 History topical cream Allergies Allergy/AdvReac Type Severity Reaction Status Date / Time No Known Allergies Allergy Mild Verified 05/26/25 10:18 Exam Narrative: unchanged Assessment and Plan Assessment and plan (1) Carpal tunnel syndrome, bilateral: Code(s): G56.03 - Carpal tunnel syndrome, bilateral upper limbs Status: Acute Assessment and Plan: cont as above (2) Ulnar neuropathy at elbow of right upper extremity: Code(s): G56.21 - Lesion of ulnar nerve, right upper limb Status: Acute
[2025-06-02 10:13] VITALS: BP 159/71; PULSE 74; TEMP 37.1; O2SAT 98; BMI 23.2
--- NOTE | 2025-06-02 10:16 | WPDANESEPPF ---
Anes - Initial Pre Proc Eval Procedure: Operation Date: 06/02/25 11:30 Proposed Procedures p Right Endoscopic Carpal Tunnel Release, Possible Open, Right Cubital Tunnel Release - Sandie Hawkins MD Date/Time: 06/02/25 10:16 Surgeon: Sandie Hawkins MD Pre Op Diagnosis: right carpal and cubital tunnel syndrome Patient Data Age: 89 Gender: F Height: 1.52 m Weight: 55 kg Allergies Allergy/AdvReac Type Severity Reaction Status Date / Time No Known Allergies Allergy Mild Verified 06/02/25 10:11 Home Medications ?Medication ?Instructions ?Recorded ?Confirmed ?Type cyanocobalamin (vitamin B-12) 2,000 mcg (2 x 1,000 mcg) PO DAILY 11/02/24 05/25/25 Rx 1,000 mcg capsule #65 caps atorvastatin 20 mg tablet 20 mg PO DAILY #90 tabs 11/16/24 05/25/25 Rx hydrochlorothiazide 25 mg tablet 25 mg PO DAILY #90 tabs 11/16/24 05/25/25 Rx fluticasone furoate 50 1 inh inhalation QAM 01/12/25 05/25/25 History mcg-vilanterol 25 mcg/dose inhalation powder (Breo Ellipta) fluoxetine 20 mg capsule 20 mg PO DAILY #90 caps 03/19/25 05/25/25 Rx cholecalciferol (vitamin D3) 50 50 mcg PO ONCE 05/25/25 05/25/25 History mcg (2,000 unit) capsule miconazole nitrate 2 % topical 1 applic topical DAILY 05/25/25 05/25/25 History cream polyethylene glycol 3350 17 17 g PO BID PRN constipation 05/25/25 05/25/25 History gram/dose oral powder (Miralax) triamcinolone acetonide 0.1 % 1 applic topical BID PRN rash 05/25/25 05/25/25 History topical cream codeine sulfate 15 mg tablet 15 mg PO Q6H PRN pain (scale score 06/02/25 Rx 7-10) #10 tabs Patient hx anesthesia problems: none Family hx anesthesia problems: none Results Review: All pre-operative results and documents have been reviewed as part of the pre-operative evaluation. [facility] Past Medical History Medical History Carpal tunnel syndrome, bilateral Venous insufficiency of lower extremity Cerebral atherosclerosis Atherosclerotic heart disease of [place] coronary artery without angina pectoris Unspecified chronic bronchitis Major depressive disorder, recurrent, in partial remission Thoracic aortic aneurysm Hyperlipidemia Hypertension Surgical History Surgical History History of arthroscopic knee surgery 07/04/2007 History of hysterectomy 1975 Family History Family History Father Accident at workplace Mother Acute myocardial infarction Heart disease Grandparent COPD (chronic obstructive pulmonary disease) Diabetes mellitus Stomach cancer Social History Social History (Updated 05/26/25 @ 10:20 by Cher Tom) Social History: Caffeine-coffee Smoking status: Never smoker Second hand tobacco smoke exposure: No Alcohol intake: never Substance use: never Substance use type: does not use Do You Feel Safe in your Home?: Yes Lack of Transportation: No Lack of Food: Never True Current Housing: I Have Housing Concerned About Future Housing: No Difficulty Paying Gas/Electric Bills: No Difficulty Paying for Meds: No Currently Unemployed: YES Education: High School Diploma/GED Difficulty w/ Childcare or Family Care: No Living arrangements: alone Occupation/Education: retired Gender identity (if verbalized by the patient): Female Sexual Orientation (if Verbalized by the Patient): Straight or Heterosexual Spiritual care concerns: No Anes - Eval Final PreProcedure Day of Procedure 06/02/25 10:16 Patient weight: normal Heart: regular rate and rhythm Lungs: clear to auscultation and normal air movement Airway: Mallampati scale class II Neurological: alert and oriented Last oral intake: >/= 8 hours ASA classification: III Emergent: no Anesthetic plan: proceed Anesthesia type and monitoring: general GIVS and standard monitoring Results Review: All pre-operative results and documents have been reviewed as part of the pre-operative evaluation. Informed Consent: The patient's anesthetic plan and its attendant risks and benefits were discussed with the patient/family/POA. Questions were solicited and answers provided to the satisfaction of the patient/family/POA.
[2025-06-02] MEDS: ACETAMINOPHEN 500 MG TABLET 1000 MG PO (10:17)
[2025-06-02] MEDS: LACTATED RINGERS 1,000 ML 30 ML IV CONT (10:17)
[2025-06-02] MEDS: ceFAZolin 2 GM in SODIUM CHLORIDE 0.9% IV 50 ML 100 ML IVPB (10:49)
[2025-06-02] MEDS: BUPivacaine HCL 0.5% 10 ML AMP 5 ML INFILTRATE (10:49)
[2025-06-02] MEDS: LIDO 1%/EPINEPHRINE 1:100,000 50 ML VIAL INFILTRATE (10:49)
[2025-06-02 11:20] VITALS: BP 106/57; PULSE 54; RESP 14; O2SAT 94
[2025-06-02 11:50] VITALS: BP 110/55; PULSE 52; RESP 16
[2025-06-02 12:20] VITALS: BP 145/72; PULSE 50; RESP 18
== END 2025-06-02 12:38 | disposition home or self-care (01) ==
PROVIDERS: PCP Family Medicine; Visit Provider Plastic Surgery
PROC: 01N54ZZ Release Median Nerve, Percutaneous Endoscopic Approach (ICD-10-PCS; CPT 29848; principal; 2025-06-02 11:30)
DX: G56.01 Carpal tunnel syndrome, right upper limb (principal); G56.21 Lesion of ulnar nerve, right upper limb; E78.5 Hyperlipidemia, unspecified; I10 Essential (primary) hypertension; I25.10 Atherosclerotic heart disease of native coronary artery without angina pectoris; I87.2 Venous insufficiency (chronic) (peripheral); I67.2 Cerebral atherosclerosis; J42 Unspecified chronic bronchitis; F33.41 Major depressive disorder, recurrent, in partial remission; Z79.51 Long term (current) use of inhaled steroids; Z79.891 Long term (current) use of opiate analgesic; Z98.890 Other specified postprocedural states; Z86.79 Personal history of other diseases of the circulatory system; Z80.0 Family history of malignant neoplasm of digestive organs; Z82.49 Family history of ischemic heart disease and other diseases of the circulatory system
CPT/HCPCS: 64718; 29848; J0690; A9270; J2003; J2004; J2704; J3010; J7120

== ENCOUNTER 2025-08-31 14:52 | Outpatient (CLI) | payer MEDICARE, SELFPAY ==
--- NOTE | ~2025-08-31 | CT_ITS ---
EXAMINATION:CT diagnostic chest wo con DATE: 08/31/2025 15:18 INDICATION: Solitary pulmonary nodule. History of 1.4 cm size right lower lobe density. Follow-up. TECHNIQUE: Computed tomography (CT) of the chest was performed without intravenous contrast. Automated exposure control and iterative reconstruction technique were employed. The dose-length product (DLP) was 138.40 mGy-cm. COMPARISON: CT chest abdomen and pelvis dated 12/16/2024. FINDINGS: Mild centrilobular pattern of emphysema. Stable, linear fibrotic change right lung base. No well-defined mass. Stable calcified lymph nodes of left hilum. No pleural or pericardial effusion. IMPRESSION: 1. Mild emphysematous lungs. Linear fibrotic density of right lung base. No pulmonary mass or nodule are seen. 2. Stable benign granulomatous nodes of left hilum. No effusion. 3. Continue annual CT screening. Lung RADS category 2 Reviewed, dictated and finalized at location T. EN ROOM OPERATOR IMPRESSION: 1. Mild emphysematous lungs. Linear fibrotic density of right lung base. No pul monary mass or nodule are seen. 2. Stable benign granulomatous nodes of left hilum. No effusion. 3. Continue annual CT screening. Lung RADS category 2
--- OUTSIDE RECORDS SUMMARY | 2025-08-31 17:19 | XMS_ITS | Clinical Summary ---
Author Organization [facility] Address [address] [place] [address] Care Team Providers Care Corporate Accounting Manager Name Role Phone No, Pcp STEEL SASH ERECTOR Primary Care Provider Unavailabl e Social History Tobacco Use Types Packs/Day Years Used Date Smoking Tobacco: Never Assessed Comments Unknown Sex and Gender Information Value Date Recorded Sex Assigned at Not on file Legal Sex Female 9:55 AM EST Gender Identity Not on file Sexual Orientation Not on file Plan of Treatment Not on file Medical Devices Not on file Care Teams Corporate Accounting Manager Relationship Specialty Start Date End Date No, Pcp, STEEL SASH ERECTOR N/A Do not use PCP - General Family Medicine 08/10/20
== END 2025-08-31 14:53 | disposition home or self-care (01) ==
PROVIDERS: PCP Family Medicine; Visit Provider Family Medicine
DX: R91.1 Solitary pulmonary nodule (principal)
CPT/HCPCS: 71250

== ENCOUNTER 2025-09-13 12:02 | Outpatient (CLI) | payer MEDICARE, SELFPAY ==
--- NOTE | ~2025-09-13 | XR_ITS ---
XR lumbar spine min 4V 09/13/2025 12:23 Indication: Chronic back pain Procedure: 5 views lumbar spine Comparison: 10/03/2007 Findings: There is disc narrowing at all lumbar levels. There is advanced multilevel facet hypertrophy from L3-4 through L5-S1. No acute fracture, subluxation or dislocation. No evidence for spondylolisthesis. There is atherosclerosis of the aorta. Pedicles grossly intact. Impression: 1: Severe lumbar spondylosis. Reviewed, dictated and finalized at location O. OR OF NAPRAPATHY Impression: 1: Severe lumbar spondylosis.
== END 2025-09-13 12:03 | disposition home or self-care (01) ==
PROVIDERS: PCP Family Medicine; Visit Provider Family Medicine
DX: M54.32 Sciatica, left side (principal); M47.896 Other spondylosis, lumbar region
CPT/HCPCS: 72110